=== PATIENT | male | born 1985 | race Caucasian/White ===

== ENCOUNTER 2021-08-17 07:19 | Emergency (ER) | payer OTHER ==
[2021-08-17 07:31] VITALS: BP 133/81; PULSE 80; TEMP 97.9; BMI 27.4
[2021-08-17] MEDS ORDERED: METOCLOPRAMIDE HCL INJECTION 10 MG/2 ML VIAL IVPB ONE (08:03)
[2021-08-17] MEDS ORDERED: ACETAMINOPHEN 1000 MG/100 ML VIAL IVPB ONE (08:03)
[2021-08-17] MEDS ORDERED: KETOROLAC TROMETHAMINE 60 MG/2 ML VIAL IVPUSH ONE (08:03)
[2021-08-17] MEDS ORDERED: SODIUM CHLORIDE 1,000 ML IV STA (08:03)
[2021-08-17] MEDS ORDERED: METOCLOPRAMIDE HCL INJECTION 10 MG/2 ML VIAL ONE (08:08)
[2021-08-17] MEDS ORDERED: ACETAMINOPHEN INJECTION 100 ML IVPB ONE (08:09)
[2021-08-17] MEDS ORDERED: KETOROLAC TROMETHAMINE 15 MG/ML VIAL ONE (08:09)
[2021-08-17 09:35] LABS: BASO % 0.7 % (0-2.0); EOS % 2.7 % (0-4.5); HEMATOCRIT 46.2 % (35.4-49); LYMPH % 28.1 % (8-40); MCH 29.1 pg (25.7-33.7); MCHC 34.5 g/dl (32.0-35.9); MEAN CELL VOLUME 84.2 fl (80-96); MEAN PLT VOLUME 8.2 fl (7.5-11.1); MONO % 9.6 % (3.8-10.2); NEUT % 58.9 % (42.8-82.8); PLATELET COUNT 263 10^3/uL (134-434); RBC 5.49 M/mm3 (4.00-5.60); RDW 12.6 % (11.9-15.9); WHITE BLOOD COUNT 5.5 K/mm3 (4.0-10.0)
[2021-08-17 09:37] LABS: ALBUMIN 4.3 g/dl (3.4-5.0); CALCIUM 9.2 mg/dL (8.5-10.1); TOT PROT 7.7 g/dl (6.4-8.2)
== END 2021-08-17 10:30 | disposition home or self-care (01) ==
LOC: JER 07:19
PROC: 3E033GC Introduction of Other Therapeutic Substance into Peripheral Vein, Percutaneous Approach (ICD-10-PCS; principal; 2021-08-17)
DX: R51.9 Headache, unspecified (principal)
CPT/HCPCS: 36415; 80053; 85025; 99284-25; J0131